=== PATIENT | male | born 1970 | race Caucasian/White ===

== ENCOUNTER 2017-05-23 15:14 | Emergency (ER) | payer MEDICARE ==
[~2017-05-23] VITALS: Ht 182.9 cm; Wt 77.1 kg
[2017-05-23 15:18] VITALS: BP 134/77
[2017-05-23] MEDS ORDERED: KETOROLAC TROMETHAMINE INJ 30 MG/ML VIAL ONE (16:49)
[2017-05-23] MEDS ORDERED: KETOROLAC TROMETHAMINE INJ 30 MG/ML VIAL IM ONE (17:00)
== END 2017-05-23 18:50 | disposition home or self-care (01) ==
LOC: ER 15:21
DX: Z76.0 Encounter for issue of repeat prescription (principal); M79.671 Pain in right foot; Z76.5 Malingerer [conscious simulation]
CPT/HCPCS: 96372; 99283; A4606; J1885; Z7610

== ENCOUNTER 2017-12-07 01:48 | Emergency (ER) | payer MEDICARE, MEDICAID ==
[~2017-12-07] VITALS: Ht 177.8 cm; Wt 73.5 kg
--- NOTE | 2017-12-07 01:57 | NUR ---
PT AMBULATORY TO ER BED 7. BIBSELF FROM STREET C/O +SI/-HI. PT STATES HEARING VOICES, TELLING HIM TO CUT HIMSELF. 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 VSS/RESP EVEN UNLABORED/NAD NOTED/SKIN WARM AND DRY/AFEBRILE/DENIES N-V-D/AOX4. AWAITNG MD HERRERA.
--- NOTE | 2017-12-07 01:59 | NUR ---
SITTER AT BESIDE.
--- NOTE | 2017-12-07 02:23 | NUR ---
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
--- NOTE | 2017-12-07 02:39 | NUR ---
Earline simmons in [facility], [place] - 12/07/17 at 0305 by [facility] AT [facility] FOR DRAW.
--- NOTE | 2017-12-07 03:10 | NUR ---
JACQUELIN FROM CRISIS MANAGEMENT AT BEDSIDE FOR PSYC EVAL.
[2017-12-07] MEDS ORDERED: OLANZAPINE 5 MG TABLET PO ONE (03:30)
[2017-12-07] MEDS ORDERED: OLANZAPINE 5 MG TABLET ONE (03:48)
--- NOTE | 2017-12-07 06:34 | NUR ---
Patient discharged to home in stable condition. Written and verbal after care instructions given. Patient verbalizes understanding of instruction. Patient is awake and alert to self, day, and place. Patient ambulatory with a steady gait.
[2017-12-07 06:35] VITALS: BP 134/75
== END 2017-12-07 06:36 | disposition home or self-care (01) ==
LOC: ER 01:49
DX: F13.20 Sedative, hypnotic or anxiolytic dependence, uncomplicated (principal); F15.10 Other stimulant abuse, uncomplicated; Z76.5 Malingerer [conscious simulation]
CPT/HCPCS: 99283; A4606; Z7610